=== PATIENT | male | born 1960 | race Caucasian/White ===

== ENCOUNTER 2019-05-08 21:06 | Emergency (ER) | payer SELFPAY ==
[~2019-05-08] VITALS: Ht 167.6 cm; Wt 82.6 kg
[2019-05-08 21:15] VITALS: Ht 167.6 cm; Wt 82.6 kg
[2019-05-08 23:28] VITALS: BP 145/98
== END 2019-05-08 23:28 | disposition home or self-care (01) ==
LOC: ED 21:06
DX: S01.01XA Laceration without foreign body of scalp, initial encounter (principal); W26.8XXA Contact with other sharp object(s), not elsewhere classified, initial encounter; Y93.89 Activity, other specified; Y92.89 Other specified places as the place of occurrence of the external cause; Y99.8 Other external cause status
CPT/HCPCS: 90715; J2001

== ENCOUNTER 2019-05-12 20:24 | Emergency (ER) | payer SELFPAY ==
[~2019-05-12] VITALS: Ht 172.7 cm; Wt 82.6 kg
[2019-05-12 20:49] VITALS: BP 161/99; Ht 172.7 cm; Wt 82.6 kg
== END 2019-05-12 23:48 | disposition left against medical advice (07) ==
LOC: ED 20:24
DX: Z53.21 Procedure and treatment not carried out due to patient leaving prior to being seen by health care provider (principal)

== ENCOUNTER 2019-05-16 12:24 | Emergency (ER) | payer SELFPAY ==
[~2019-05-16] VITALS: Ht 165.1 cm; Wt 82.2 kg
[2019-05-16 12:30] VITALS: Ht 165.1 cm; Wt 82.2 kg
[2019-05-16 13:41] VITALS: BP 153/92
== END 2019-05-16 13:41 | disposition home or self-care (01) ==
LOC: ED 12:24
DX: S01.01XD Laceration without foreign body of scalp, subsequent encounter (principal); Z48.01 Encounter for change or removal of surgical wound dressing; X58.XXXD Exposure to other specified factors, subsequent encounter